=== PATIENT | female | born 1980 | race Caucasian/White ===

== ENCOUNTER 2019-02-14 17:54 | Emergency (ER) | payer SELFPAY ==
[~2019-02-14] VITALS: Ht 180.3 cm; Wt 104.5 kg
[2019-02-14 18:06] VITALS: BP 159/82; TEMP 98.2
[2019-02-14 18:55] LABS: BASO # 0.1 (0.0-0.2); EOS # 0.4 (0.0-0.7); LYMPH # 1.7 (1.2-3.4); LYMPH % 29.4 % (20.0-51.0); MEAN CELL VOLUME 77 fl (80.0-100.0); MEAN CORPUSCULAR HEMOGLOBIN 23 pg (27.0-31.0); MEAN CORPUSCULAR HGB CONC 30 g/dl (33.0-37.0); MEAN PLATELET VOLUME 10.4 fl (7.4-10.4); MONO # 0.6 (0.1-0.6); MONO % 10.4 % (1.7-9.3); PLATELET COUNT 354 K/mm3 (130-400); RED BLOOD COUNT 4.28 M/mm3 (4.10-5.30); REDCELL DISTRIBUTION WIDTH-CV 16.4 % (11.5-14.5)
[2019-02-14 18:56] LABS: HEMATOCRIT 33.1 % (37.0-47.0)
[2019-02-14 19:22] LABS: ALANINE AMINOTRANSFERASE 33 U/L (9-52); ALKALINE PHOSPHATASE 72 U/L (50-136); ANION GAP 6 mmol/L (7-16); AST,SGOT 47 U/L (15-37); BILIRUBIN,TOTAL 0.3 mg/dL (0.0-1.0); BLOOD UREA NITROGEN 12 mg/dL (7-17); CALCIUM 8.2 mg/dL (8.4-10.2); CARBON DIOXIDE 26 mmol/L (22-30); CHLORIDE 107 mmol/L (98-107); CREATININE, serum 0.77 (0.52-1.25); GLUCOSE 99 mg/dL (74-106); POTASSIUM 3.3 mmol/L (3.4-5.0); SODIUM 138 mmol/L (137-145); TOTAL PROTEIN 7.1 gm/dL (6.4-8.2)
[2019-02-14 19:34] LABS: TROPONIN-I < 0.012 ng/mL (0.000-0.035)
[2019-02-14] MEDS ORDERED: LASIX 20MG TABL20 MG PO (21:05)
[2019-02-14] MEDS ORDERED: K-DUR20 MEQ PO (21:05)
[2019-02-14 21:26] VITALS: PULSE 82
== END 2019-02-14 21:26 | disposition home or self-care (01) ==
LOC: COL.ER 17:54
PROVIDERS: Emergency Medicine
DX: D50.9 Iron deficiency anemia, unspecified (principal); R60.0 Localized edema; R06.00 Dyspnea, unspecified; F90.9 Attention-deficit hyperactivity disorder, unspecified type; Z98.51 Tubal ligation status
CPT/HCPCS: Q9967

== ENCOUNTER → 2019-09-01 | Outpatient (CLI) | payer OTHER ==
[~2019-09-01] VITALS: Ht 174 cm; Wt 105.7 kg
[~2019-09-01] MED LIST: ADDERALL30 MG PO; K-DUR20 MEQ PO; LASIX 20MG TABL20 MG PO
[2019-09-01 13:47] VITALS: BP 126/90; PULSE 84
== END ==
LOC: LIGHT 13:21
DX: E66.8 Other obesity (principal); Z68.34 Body mass index [BMI] 34.0-34.9, adult; Z98.84 Bariatric surgery status; R11.2 Nausea with vomiting, unspecified
CPT/HCPCS: G0463

== ENCOUNTER 2019-11-06 22:28 | Emergency (ER) | payer OTHER ==
[~2019-11-06] VITALS: Ht 180.3 cm; Wt 97.7 kg
[2019-11-06 22:47] VITALS: TEMP 98.4
[2019-11-06 23:33] LABS: BASO # 0.1 (0.0-0.2); BASO % 0.9 % (0.0-2.0); EOS # 0.3 (0.0-0.7); EOS % 4.1 % (0-4.0); GRAN # 4.4 (1.4-6.5); GRAN % 57.9 % (42.2-75.2); HEMATOCRIT 38.3 % (37.0-47.0); HEMOGLOBIN 11.7 g/dl (12.5-16.0); LYMPH # 2.2 (1.2-3.4); LYMPH % 28.5 % (20.0-51.0); MEAN CELL VOLUME 78 fl (80.0-100.0); MEAN CORPUSCULAR HEMOGLOBIN 24 pg (27.0-31.0); MEAN CORPUSCULAR HGB CONC 31 g/dl (33.0-37.0); MONO # 0.6 (0.1-0.6); MONO % 8.3 % (1.7-9.3); PLATELET COUNT 372 K/mm3 (130-400); REDCELL DISTRIBUTION WIDTH-CV 17.2 % (11.5-14.5)
[2019-11-06 23:42] LABS: ALANINE AMINOTRANSFERASE 13 U/L (4-34); ALBUMIN 4.2 gm/dL (3.5-5.0); ALKALINE PHOSPHATASE 81 U/L (50-136); ANION GAP 9 mmol/L (7-16); AST,SGOT 24 U/L (15-37); BILIRUBIN,TOTAL 0.4 mg/dL (0.0-1.0); BLOOD UREA NITROGEN 14 mg/dL (7-17); CALCIUM 8.6 mg/dL (8.4-10.2); CARBON DIOXIDE 25 mmol/L (22-30); CHLORIDE 105 mmol/L (98-107); CREATININE, serum 0.86 (0.52-1.25); GLUCOSE 98 mg/dL (74-106); POTASSIUM 3.5 mmol/L (3.4-5.0); SODIUM 139 mmol/L (137-145)
[2019-11-07 00:15] LABS: C-REACTIVE PROTEIN < 0.5 mg/dL (0.0-0.9)
[2019-11-07 03:30] VITALS: BP 131/86; PULSE 86
[2019-11-07 04:02] LABS: GLUCOSE,CSF 59 mg/dL (40-70); TOTAL PROTEIN,CSF 36 mg/dL (15-45)
[2019-11-07 04:09] LABS: CSF APPEARANCE CLEAR; CSF COLOR COLORLESS; CSF RBC 5 /mm3 (0-0)
[2019-11-07 04:10] LABS: CSF APPEARANCE CLEAR; CSF COLOR COLORLESS; CSF RBC < 1 /mm3 (0-0)
[2019-11-07 04:58] LABS: CSF MONONUCLEAR 100 % (70-100); CSF POLYMORPHONUCLEAR 0 % (0-6)
[2019-11-07 05:01] LABS: CSF MONONUCLEAR 100 % (70-100); CSF POLYMORPHONUCLEAR 0 % (0-6)
== END 2019-11-07 06:45 | disposition home or self-care (01) ==
LOC: COL.ER 22:28
PROVIDERS: Emergency Medicine; Nurse Practitioner
DX: R51 Headache (principal); F90.9 Attention-deficit hyperactivity disorder, unspecified type; Z87.891 Personal history of nicotine dependence
CPT/HCPCS: J0595; J1100; J1200; J1630; J1885; J2765; J7030; Q9967

== ENCOUNTER 2019-11-26 18:21 | Emergency (ER) | payer OTHER ==
[~2019-11-26] VITALS: Ht 180.3 cm; Wt 104.5 kg
[2019-11-26 18:33] VITALS: TEMP 98.6
[2019-11-26 19:21] LABS: BASO # 0.1 (0.0-0.2); BASO % 0.9 % (0.0-2.0); EOS # 0.2 (0.0-0.7); EOS % 3.3 % (0-4.0); GRAN # 4.2 (1.4-6.5); GRAN % 62.1 % (42.2-75.2); HEMOGLOBIN 11.3 g/dl (12.5-16.0); LYMPH # 1.7 (1.2-3.4); LYMPH % 24.9 % (20.0-51.0); MEAN CELL VOLUME 80 fl (80.0-100.0); MEAN CORPUSCULAR HEMOGLOBIN 25 pg (27.0-31.0); MEAN CORPUSCULAR HGB CONC 31 g/dl (33.0-37.0); MONO # 0.6 (0.1-0.6); MONO % 8.5 % (1.7-9.3); PLATELET COUNT 428 K/mm3 (130-400); RED BLOOD COUNT 4.62 M/mm3 (4.10-5.30); REDCELL DISTRIBUTION WIDTH-CV 17.7 % (11.5-14.5)
[2019-11-26 19:24] LABS: HEMATOCRIT 36.9 % (37.0-47.0)
[2019-11-26 19:32] LABS: ALANINE AMINOTRANSFERASE 16 U/L (4-34); ALBUMIN 4.4 gm/dL (3.5-5.0); ALKALINE PHOSPHATASE 80 U/L (50-136); ANION GAP 9 mmol/L (7-16); AST,SGOT 23 U/L (15-37); BILIRUBIN,TOTAL 0.7 mg/dL (0.0-1.0); BLOOD UREA NITROGEN 14 mg/dL (7-17); CALCIUM 8.8 mg/dL (8.4-10.2); CARBON DIOXIDE 27 mmol/L (22-30); CHLORIDE 102 mmol/L (98-107); CREATININE, serum 0.84 (0.52-1.25); GLUCOSE 122 mg/dL (74-106); POTASSIUM 3.6 mmol/L (3.4-5.0); SODIUM 138 mmol/L (137-145); TOTAL PROTEIN 7.8 gm/dL (6.4-8.2)
[2019-11-26 20:02] LABS: TROPONIN-I < 0.012 ng/mL (0.000-0.035)
[2019-11-26] MEDS ORDERED: LASIX 20MG TABL20 MG PO (20:23)
[2019-11-26 20:49] VITALS: BP 140/88; PULSE 94
== END 2019-11-26 20:49 | disposition home or self-care (01) ==
LOC: COL.ER 18:21
PROVIDERS: Nurse Practitioner Primary Care
DX: R60.0 Localized edema (principal); F90.9 Attention-deficit hyperactivity disorder, unspecified type; Z88.8 Allergy status to other drugs, medicaments and biological substances

== ENCOUNTER 2020-02-26 18:42 | Emergency (ER) | payer OTHER ==
[~2020-02-26] VITALS: Ht 177.8 cm; Wt 104.5 kg
[~2020-02-26 18:42] MED LIST changes: +COREG 6.256.25 MG/TA PO; +FIORICET 325 MG1 TA1 PO
[2020-02-26 18:48] VITALS: TEMP 98.7
[2020-02-26] MEDS ORDERED: NORVASC 5MG5 MG/TAB PO (19:06)
[2020-02-26 20:07] LABS: BASO # 0.1 (0.0-0.2); EOS # 0.3 (0.0-0.7); EOS % 5.2 % (0-4.0); GRAN # 3.4 (1.4-6.5); GRAN % 53.2 % (42.2-75.2); HEMATOCRIT 40.5 % (37.0-47.0); HEMOGLOBIN 12.3 g/dl (12.5-16.0); LYMPH # 2.1 (1.2-3.4); LYMPH % 32.6 % (20.0-51.0); MEAN CELL VOLUME 80 fl (80.0-100.0); MEAN CORPUSCULAR HEMOGLOBIN 24 pg (27.0-31.0); MEAN CORPUSCULAR HGB CONC 30 g/dl (33.0-37.0); MEAN PLATELET VOLUME 10.1 fl (7.4-10.4); MONO # 0.5 (0.1-0.6); MONO % 7.8 % (1.7-9.3); PLATELET COUNT 464 K/mm3 (130-400); RED BLOOD COUNT 5.06 M/mm3 (4.10-5.30)
[2020-02-26 20:21] LABS: ALANINE AMINOTRANSFERASE 40 U/L (4-34); ALBUMIN 4.3 gm/dL (3.5-5.0); ALKALINE PHOSPHATASE 73 U/L (50-136); ANION GAP 9 mmol/L (7-16); AST,SGOT 35 U/L (15-37); BILIRUBIN,TOTAL 0.4 mg/dL (0.0-1.0); BLOOD UREA NITROGEN 15 mg/dL (7-17); CALCIUM 9.1 mg/dL (8.4-10.2); CARBON DIOXIDE 26 mmol/L (22-30); CHLORIDE 104 mmol/L (98-107); CREATININE, serum 0.96 (0.52-1.25); GLUCOSE 101 mg/dL (74-106); POTASSIUM 3.8 mmol/L (3.4-5.0); SODIUM 139 mmol/L (137-145); TOTAL PROTEIN 7.5 gm/dL (6.4-8.2)
[2020-02-26 20:46] LABS: TROPONIN-I < 0.012 ng/mL (0.000-0.035)
[2020-02-26 21:34] VITALS: BP 153/106; PULSE 92
== END 2020-02-26 21:36 | disposition home or self-care (01) ==
LOC: COL.ER 18:42
PROVIDERS: Family Medicine
DX: I10 Essential (primary) hypertension (principal); I16.0 Hypertensive urgency; Z88.8 Allergy status to other drugs, medicaments and biological substances; Z79.899 Other long term (current) drug therapy

== ENCOUNTER → 2020-03-16 | Outpatient (CLI) | payer OTHER ==
[~2020-03-16] MED LIST changes: +NORVASC 5MG5 MG/TAB PO
== END ==
LOC: COL.RAD 10:38
DX: I10 Essential (primary) hypertension (principal); I77.1 Stricture of artery; E27.8 Other specified disorders of adrenal gland; Z98.84 Bariatric surgery status
CPT/HCPCS: Q9967

== ENCOUNTER → 2020-04-07 | Outpatient (CLI) | payer OTHER | LOC: COL.RAD 03-26 13:00 | DX: Q25.1 Coarctation of aorta (principal); Z98.890 Other specified postprocedural states | CPT/HCPCS: Q9967 ==

== ENCOUNTER 2022-01-13 05:29 | Day surgery (SDC) | payer OTHER ==
[~2022-01-13] VITALS: Ht 177.8 cm; Wt 112.9 kg
[2022-01-13 05:48] VITALS: BP 110/74; PULSE 82; TEMP 97.1
[2022-01-13] MEDS ORDERED: ZANAFLEX 4MG TAB4 MG PO (05:50)
[2022-01-13] MEDS ORDERED: GLUCOPHAGE1000 MG PO (05:51)
[2022-01-13] MEDS ORDERED: COZAAR100 MG PO (05:51)
[2022-01-13] MEDS ORDERED: COREG 25MG25 MG/TAB PO (05:51)
[2022-01-13] MEDS ORDERED: CATAPRES-TTS 30.3 MG TD (05:52)
[2022-01-13 08:10] VITALS: BP 125/97; PULSE 73; TEMP 97
--- NOTE | 2022-01-13 08:10 | NUR ---
The patient arrived back to [facility] from the operating room at this time. The patient appears alert and oriented and denies any pain or nausea at this time. Dressing to abdomen clean, dry and intact. Post operative vital signs were started at this time. The patient reports needing void and ambulated to the bathroom with the stand by assistance of one nurse and appeared to tolerate the activity well and voided without difficulty. The patient agrees to try some sprite.
[2022-01-13] MEDS ORDERED: NORCO 325 MG-51 TAB PO (08:13)
[2022-01-13 08:25] VITALS: BP 126/72; PULSE 66
--- NOTE | 2022-01-13 08:25 | NUR ---
The patient appears to be tolerating the sprite well. Dr. Hawk is at the patient's bedside talking with her about the outcome of the procedure.
[2022-01-13 08:40] VITALS: BP 125/70; PULSE 70
--- NOTE | 2022-01-13 08:40 | NUR ---
The patient has finished her sprite and voices a desire to be discharged home. The patient is going to get dressed and notify the staff when she is ready to review her discharge paperwork.
--- NOTE | 2022-01-13 08:50 | NUR ---
Discharge instructions were reviewed with the patient at this time. She verblaized understanding and has no questions for the nurse at this time. The patient is dressed and ready to be escorted out.
--- NOTE | 2022-01-13 08:55 | NUR ---
The patient was escorted out via wheelchair to a private vehicle by FLORENCIA Topete. The patient's belongings and discharge paperwork were sent wtih her. The patient's friend is present to drive her home.
== END 2022-01-13 08:55 | disposition home or self-care (01) ==
LOC: SDCO 05:29
DX: K95.09 Other complications of gastric band procedure (principal); E66.9 Obesity, unspecified; Z68.37 Body mass index [BMI] 37.0-37.9, adult; Y73.8 Miscellaneous gastroenterology and urology devices associated with adverse incidents, not elsewhere classified
CPT/HCPCS: J0330; J0690; J1100; J2250; J2405; J2704; J3010; J7120

== ENCOUNTER → 2023-07-19 | Outpatient (CLI) | payer OTHER ==
[~2023-07-19] MED LIST changes: +CATAPRES-TTS 30.3 MG TD; +COREG 25MG25 MG/TAB PO; +COZAAR100 MG PO; +GLUCOPHAGE1000 MG PO; +NORCO 325 MG-51 TAB PO; +ZANAFLEX 4MG TAB4 MG PO
== END ==
LOC: MC.RAD 08:00
DX: Z12.31 Encounter for screening mammogram for malignant neoplasm of breast (principal)

== ENCOUNTER 2023-10-04 12:33 | Day surgery (SDC) | payer OTHER ==
[2023-10-04] VITALS (7 sets, daily range): BP systolic 107–154; BP diastolic 49–93; PULSE 46–85; TEMP 97.3–98.6
[~2023-10-04] VITALS: Ht 160 cm; Wt 105.3 kg
[~2023-10-04 12:33] MED LIST changes: +LR 1,000 ML IV ONE; +LR 1,000 ML IV SCH
[2023-10-04] MEDS ORDERED: fentaNYL 50 MCG/ML 5 ML VIAL ONE ×3 (12:56→13:48)
[2023-10-04] MEDS ORDERED: Rocuronium 50 MG/5 ML Multi-Dose VIAL ONE (12:57)
[2023-10-04] MEDS ORDERED: NS 10 ML IV ONE (12:57)
[2023-10-04] MEDS ORDERED: Ondansetron 4 MG/2 ML VIAL ONE (12:57)
[2023-10-04] MEDS ORDERED: Scopolamine 1 MG Delivered 3-Day PATCH TD SCH (13:00)
[2023-10-04] MEDS ORDERED: dexAMETHasone 10 MG/ML VIAL ONE (13:12)
[2023-10-04] MEDS ORDERED: Lidocaine 2% (20 MG/ML) 20 ML UROJET UR ONE (13:19)
[2023-10-04] MEDS ORDERED: Tranexamic Acid 1,000 MG/10 ML VIAL ONE (13:46)
[2023-10-04] MEDS ORDERED: Ketorolac 60 MG/2 ML VIAL IM ONE (14:08)
[2023-10-04] MEDS ORDERED: Ondansetron 4 MG/2 ML VIAL IV PRN ×2 (14:15→15:00)
[2023-10-04] MEDS ORDERED: HYDROmorphone 1 MG/1 ML SYRINGE [PACU/SDC ONLY] IV PRN (14:15)
[2023-10-04] MEDS ORDERED: fentaNYL 50 MCG/ML 1 ML SYRINGE/VIAL [PACU/SDC ONLY] IV PRN (14:15)
[2023-10-04] MEDS ORDERED: Neostigmine 1 MG/ML 10 ML Multi-Dose Vial ONE (14:33)
[2023-10-04] MEDS ORDERED: Glycopyrrolate 0.2 MG/ML 1 ML VIAL ONE (14:33)
[2023-10-04] MEDS ORDERED: LR 1,000 ML IV ONE (14:37)
[2023-10-04] MEDS ORDERED: Topical Skin Adhesive 1 EACH (1 ML) TOP ONE (14:43)
[2023-10-04] MEDS ORDERED: Acetaminophen 500 MG TAB PO PRN (15:00)
[2023-10-04] MEDS ORDERED: oxyCODONE 5 MG TAB PO PRN (15:00)
[2023-10-04] MEDS ORDERED: LR 1,000 ML IV SCH (15:00)
[2023-10-04] MEDS ORDERED: Naloxone 0.4 MG/ML VIAL IV PRN (15:00)
[2023-10-04] MEDS ORDERED: Hyoscyamine 0.125 MG Sublingual TAB SL PRN (15:45)
--- NOTE | 2023-10-04 16:42 | NUR ---
PATIENT ARRIVED TO FLOOR AT 1625. VSS. PATIENT IS BRADYCARDIC W/ HR @ 51BPM. PATIENT HAS 4 LAP SITES CLOSED WITH SURGICAL GLUE ALL CDI. PORTILLO IN PLACE CLEAR YELLOW URINE DRAINING. PATIENT RESTING COMFORTABLY AT THIS TIME AND HAS NO REQUEST AT THIS TIME. CALL LIGHT IN REACH.
[2023-10-04] MEDS ORDERED: Ibuprofen 800 MG TAB PO SCH (20:48)
[2023-10-04] MEDS ORDERED: Docusate Sodium 100 MG CAP PO SCH (21:00)
--- NOTE | 2023-10-04 21:15 | NUR ---
Patient resting in bed. Rates her pain at 5/10, prn pain meds given. Needs met. Assessment complete. IV in right AC flushes easily without complications. Assissted patient ambulating in hallway. Patient tolerated very well with no complications or complains of pain. Call light and personal items in reach. Bed in low position.
[2023-10-04] MEDS ORDERED: diphenhydrAMINE 50 MG/ML 1 ML VIAL IV ONE (21:30)
[2023-10-05 00:51] VITALS: BP 119/75; PULSE 77; TEMP 98.5
[2023-10-05 01:00] VITALS: BP_SYST 120
[2023-10-05 04:26] VITALS: BP 120/76; PULSE 59; TEMP 97.5
[2023-10-05 04:51] VITALS: BP_SYST 120
--- NOTE | 2023-10-05 05:45 | NUR ---
Foly removed at this time with no complications. Patient ambulated in hallway independently without complictions or compliants of pain. No events overnight.
[2023-10-05 07:06] VITALS: BP 124/76; PULSE 46; TEMP 97.5
[2023-10-05 08:00] VITALS: BP_SYST 124
--- NOTE | 2023-10-05 09:00 | NUR ---
SHIFT ASSESSMENT COMPLETE. VSS. PATIENT AWAKE IN BED. ALL MORNING MEDS GIVEN PER ORDERS. PATIENT HAS BEEN SEEN BY DR. YEE THIS AM AND RECEIVED DICHARGE ORDRS. INCISION SITES CDI AND EUSEBIA PAD HAS A SMALL AMOUNT OF BLOOD. PATIENT STATES PAIN 2/10 NO PAIN MEDS REQUESTED. PATIENT HAS NO OTHER REQUEST AT THIS TIME.
--- NOTE | 2023-10-05 09:48 | NUR ---
DISCHARGE COMPLETE, ALL QUESTIONS ANSWERED AND APPOINMENTS GIVEN FOR FOLLOW UP. INT DC'D ALL INTACT. PATIENT WALKED OUT BY LICENSED [employer]S [employer]ER.
[2023-11-06] MEDS ORDERED: VENOFER IV (10:23)
== END 2023-10-05 10:16 | disposition home or self-care (01) ==
LOC: SDCO 12:33 → SURG 16:25 → SDCO 10-05 10:16
DX: D25.9 Leiomyoma of uterus, unspecified (principal); N92.0 Excessive and frequent menstruation with regular cycle; E66.9 Obesity, unspecified; I10 Essential (primary) hypertension; Z87.891 Personal history of nicotine dependence; Z68.34 Body mass index [BMI] 34.0-34.9, adult
CPT/HCPCS: OP; A4314; J0690; J1100; J1170; J1200; J1885; J2405; J2704; J2710; J3010; J7120

== ENCOUNTER 2023-10-13 08:55 | Emergency (ER) | payer OTHER ==
[~2023-10-13] VITALS: Ht 177.8 cm; Wt 100.0 kg
[~2023-10-13 08:55] MED LIST changes: -LR 1,000 ML IV ONE; -LR 1,000 ML IV SCH
[2023-10-13 09:01] VITALS: TEMP 97.8
[2023-10-13] MEDS ORDERED: Ondansetron 4 MG/2 ML VIAL IV ONE (10:00)
[2023-10-13] MEDS ORDERED: NS 1,000 ML IV ONE (10:00)
[2023-10-13] MEDS ORDERED: fentaNYL 50 MCG/ML 2 ML VIAL IV ONE (10:00)
[2023-10-13 10:07] LABS: BASO # 0.1 K/mm3 (0.0-0.2); BASO % 0.6 % (0.0-2.0); EOS # 0.2 K/mm3 (0.0-0.7); EOS % 1.6 % (0.0-4.0); GRAN # 10.1 K/mm3 (1.4-6.5); GRAN % 77.6 % (42.2-75.2); HEMATOCRIT 43.7 % (37.0-47.0); HEMOGLOBIN 13.8 g/dl (12.5-16.0); LYMPH # 1.8 K/mm3 (1.2-3.4); LYMPH % 13.9 % (20.0-51.0); MEAN CELL VOLUME 88 fl (80.0-100.0); MEAN CORPUSCULAR HEMOGLOBIN 28 pg (27-31); MEAN CORPUSCULAR HGB CONC 32 g/dl (33.0-37.0); MEAN PLATELET VOLUME 12.1 fl (7.4-10.4); MONO # 0.8 K/mm3 (0.1-0.6); MONO % 6.1 % (1.7-9.3); PLATELET COUNT 403 K/mm3 (130-400); RED BLOOD COUNT 4.97 M/mm3 (4.10-5.30); REDCELL DISTRIBUTION WIDTH-CV 13.9 % (11.5-14.5)
[2023-10-13 10:25] LABS: ALBUMIN 3.7 g/dL (3.5-5.0); BILIRUBIN,TOTAL 0.6 mg/dL (0.2-1.2); CALCIUM 9.3 mg/dL (8.4-10.2); CREATININE, serum 0.77 mg/dL (0.57-1.11); POTASSIUM 5.1 mEq/L (3.5-4.5); TOTAL PROTEIN 7.6 g/dl (6.2-8.1)
[2023-10-13 10:28] LABS: COLLECTION METHOD CLEAN CATCH
[2023-10-13] MEDS ORDERED: Iohexol 300 - 100 ML VIAL IV ONE (10:36)
[2023-10-13] MEDS ORDERED: NS 100 ML IV ONE (10:36)
[2023-10-13 10:43] LABS: URINE COLOR Yellow (YELLOW)
[2023-10-13 10:44] LABS: PH 5.5 (5.0-8.5); URINE APPEARANCE Clear (CLEAR/HAZY); URINE BLOOD TRACE-INTACT (NEGATIVE); URINE GLUCOSE Negative (NEGATIVE); URINE KETONE Negative (NEGATIVE); URINE NITRATE Negative (NEGATIVE); URINE PROTEIN(semi-quant) Negative (NEGATIVE); URINE UROBILINOGEN 0.2 E.U/dL (0.2-1.0)
[2023-10-13 11:26] VITALS: BP 137/82; PULSE 87
== END 2023-10-13 11:32 | disposition home or self-care (01) ==
LOC: COL.ER 08:55
PROVIDERS: Family Medicine
DX: G89.18 Other acute postprocedural pain (principal); R10.30 Lower abdominal pain, unspecified; E87.5 Hyperkalemia; Z90.710 Acquired absence of both cervix and uterus
CPT/HCPCS: J2405; J3010; J7030; Q9967

== ENCOUNTER 2023-11-02 08:23 | Day surgery (SDC) | payer OTHER ==
[~2023-11-02] VITALS: Ht 177.8 cm; Wt 102.6 kg
[~2023-11-02 08:23] MED LIST changes: +LR 1,000 ML IV SCH; +Ondansetron 4 MG/2 ML VIAL IV PRN
[2023-11-02] MEDS ORDERED: ADIPEX-P37.5 M2 PO (08:42)
[2023-11-02] MEDS ORDERED: VITAMIN D 50,1.25 MG PO (08:42)
[2023-11-02] MEDS ORDERED: GLUCOPHAGE XR500 M1 PO (08:43)
[2023-11-02 09:17] VITALS: BP 136/101; PULSE 114; TEMP 97.4
[2023-11-02 10:15] VITALS: BP 149/106; PULSE 97; TEMP 97.4
[2023-11-02 10:30] VITALS: BP 150/110; PULSE 93
--- NOTE | 2023-11-02 13:12 | NUR ---
1015- Pt returns from procedure on cart. Ambulates to recliner chair with steady gait. Reports cramping after procedure, provider aware. Crackers and sprite given. Resting in recliner with feet elevated, call light within reach. 1025- Discharge instructions reviewed, questions answered 1030- Pt forest friend to come to hospital for ride home. 1034- IV removed. Pt dressed at this time 1048- Dr. Henry in room to talk with patient. 1053- Patient to friends car via w/c. Denies complaints.
[2023-11-06] MEDS ORDERED: VENOFER IV (10:23)
== END 2023-11-02 10:53 | disposition home or self-care (01) ==
LOC: SDCO 08:23
DX: Z12.11 Encounter for screening for malignant neoplasm of colon (principal); K51.40 Inflammatory polyps of colon without complications; K57.30 Diverticulosis of large intestine without perforation or abscess without bleeding; E66.9 Obesity, unspecified; Z85.42 Personal history of malignant neoplasm of other parts of uterus; Z68.34 Body mass index [BMI] 34.0-34.9, adult
CPT/HCPCS: J2704; J7120